=== PATIENT | male | born 1980 | race American Indian/Alaskan Native ===

== ENCOUNTER 2017-03-08 01:10 | Emergency (ER) | payer MEDICAID ==
[2017-03-08 01:41] VITALS: BMI 23.6
[2017-03-08 01:52] VITALS: O2SAT 100
--- NOTE | 2017-03-08 02:49 | ED PDOC ---
Upper Extremity Pain/Injury Time Seen by Provider: 03/08/17 02:00 Chief Complaint (Nursing): Upper Extremity Problem/Injury Chief Complaint (Provider): right arm pain History Per: Patient History/Exam Limitations: no limitations Onset/Duration Of Symptoms: Days (2 weeks) Current Symptoms Are (Timing): Still Present Additional History Per: Patient Additional Complaint(s): 37 y/o male presents with right arm pain x 2 weeks. Patient states area started as what looked like a "bite", 3 days later was admitted to [facility] and started on IV antibiotics and had "cardiac" work up. Patient states he was discharged a week later on Amoxicillin, Toradol, and Tylenol. PAtient notes no improvement of symptoms, and feels the infection is getting worse. Denies fever, nausea/vomiting, numbness/weakness right upper extremity, limitation of movement, IV drug use. Past Medical History Reviewed: Historical Data, Nursing Documentation, Vital Signs Vital Signs: Last Vital Signs Temp 99.0 F 03/08/17 01:42 Pulse 105 H 03/08/17 01:42 Resp 18 03/08/17 01:42 BP 138/78 03/08/17 01:42 Pulse Ox 100 03/08/17 01:42 - Medical History PMH: No Chronic Diseases - Surgical History Surgical History: No Surg Hx - Family History Family History: States: No Known Family Hx - Social History Current smoker - smoking cessation education provided: Yes Alcohol: Occasional Drugs: Denies - Home Medications Home Medications: Ambulatory Orders Medication Instructions Recorded Sulfamethoxazole/Trimethoprim 1 tab PO BID #20 tab 03/08/17 [Bactrim DS 800 mg-160 mg] - Allergies Allergies/Adverse Reactions: Allergies Allergy/AdvReac Type Severity Reaction Status Date / Time No Known Allergies Allergy Verified 03/08/17 01:41 Review of Systems ROS Statement: Except As Marked, All Systems Reviewed And Found Negative Musculoskeletal: Positive for: Arm Pain Physical Exam - Reviewed Nursing Documentation Reviewed: Yes Vital Signs Reviewed: Yes - Physical Exam Appears: Positive for: Well, Non-toxic, No Acute Distress Head Exam: Positive for: ATRAUMATIC, NORMAL INSPECTION, NORMOCEPHALIC Skin: Positive for: Normal Color Eye Exam: Positive for: Normal appearance ENT: Positive for: Normal ENT Inspection Cardiovascular/Chest: Positive for: Regular Rate, Rhythm Respiratory: Positive for: Normal Breath Sounds Pulses-Radial (L): 2+ Pulses-Radial (R): 2+ Extremity: Positive for: Normal ROM, Tenderness (open lesion right antecubital fossa with surrounding tenderness, erythema. Firmness extending up to bicep. FROM), Capillary Refill. Negative for: Deformity Neurologic/Psych: Positive for: Alert, Oriented - Laboratory Results Result Diagrams: 03/08/17 03:06 03/08/17 03:06 - ECG O2 Sat by Pulse Oximetry: 100 - Progress ED Course And Treament: labs, CT right upper extremit with IV contrast, IV toradol EXAM: CT Right Upper Extremity With Intravenous Contrast CLINICAL HISTORY: 37 years old, male; Signs and symptoms; Swelling; Arm, upper and elbow; Right; Additional info: Mid arm pain/redness/swelling with open abscess TECHNIQUE: Axial computed tomography images of the right upper extremity with intravenous contrast. All CT scans at this facility use one or more dose reduction techniques, viz.: automated exposure control; ma/kV adjustment per patient size (including targeted exams where dose is matched to indication; i.e. head); or iterative reconstruction technique. CONTRAST: 90 mL of [id number] administered intravenously. COMPARISON: No relevant prior studies available. FINDINGS: Artifacts: Artifact: Scatter artifact. Bones/joints: Unremarkable. No acute fracture. No dislocation. Soft tissues: There is edema in the subcutaneous fat of the anterior and lower arm. No definite abscess is identified. Scatter artifact somewhat limits evaluation. IMPRESSION: There is edema in the subcutaneous fat of the anterior and lower arm. No definite abscess is identified. Scatter artifact somewhat limits evaluation. IV vanco dose given in ED. Patient educated on findings, discharged with rx Bactrim DS to take in place of amoxicillin. Advised to follow up PMD 2-3 days. Return to ED for worsening/concerning symptoms. Disposition - Clinical Impression Clinical Impression: Cellulitis of right arm - Patient ED Disposition Is Patient to be Admitted: No Counseled Patient/Family Regarding: Studies Performed, Diagnosis, Need For Followup, Rx Given - Disposition Disposition: Routine/Home Disposition Time: 06:00 Condition: IMPROVED Prescriptions: Sulfamethoxazole/Trimethoprim [Bactrim DS 800 mg-160 mg] 1 tab PO BID #20 tab Instructions: Cellulitis (ED) Forms: [employer] (Chinese)
[2017-03-08 03:14] LABS: BASO # 0.1 K/uL (0.0-0.2); BASO % 0.9 % (0.0-2.0); EOS # 0.1 K/uL (0.0-0.7); EOS % 0.5 % (0.0-4.0); HEMATOCRIT 39.5 % (35.0-51.0); LYMPH # 2.9 K/uL (1.0-4.3); LYMPH % 21.1 % (20.0-40.0); MEAN CELL VOLUME 93.8 fl (80.0-94.0); MEAN CORPUSCULAR HEMOGLOBIN 32.4 pg (27.0-31.0); MEAN CORPUSCULAR HGB CONC 34.5 g/dL (33.0-37.0); MEAN PLATELET VOLUME 6.9 fl (7.2-11.7); MONO # 1.2 K/uL (0.0-0.8); MONO % 8.7 % (0.0-10.0); NEUT # 9.3 K/uL (1.8-7.0); NEUT % 68.8 % (50.0-75.0); RED CELL DISTRIBUTION WIDTH 14.2 % (11.5-14.5); WHITE BLOOD COUNT 13.6 K/uL (4.8-10.8)
[2017-03-08 03:19] LABS: ALB/GLOB RATIO 1.2 (1.0-2.1); ALKALINE PHOSPHATASE 62 U/L (38-126); ALT/SGPT 108 U/L (21-72); AST/SGOT 45 U/L (17-59); BILIRUBIN,TOTAL 1.2 mg/dl (0.2-1.3); BLOOD UREA NITROGEN 9 mg/dl (9-20); CALCIUM 9.1 mg/dL (8.4-10.2); CARBON DIOXIDE 20 mmol/L (22-30); CHLORIDE 106 mmol/L (98-107); GFR AFRICAN-AMERICAN > 60; GLUCOSE,RANDOM 100 mg/dL (75-110); SODIUM 137 mmol/l (132-148); TOTAL PROTEIN 8.1 G/DL (6.3-8.2)
[2017-03-08] MEDS ORDERED: Iohexol 300 100 ML IJ ONE (03:46)
[2017-03-08] MEDS ORDERED: Sodium Chloride 0.9% 50 ML IV ONE (03:46)
[2017-03-08 08:15] VITALS: BP 119/62; PULSE 82; RESP 16; TEMP 98
--- NOTE | 2017-03-08 09:52 | CT ---
PROCEDURE: CT right upper extremity with intravenous contrast. HISTORY: mid arm pain/redness/swelling with open abscess COMPARISON: None available. TECHNIQUE: Contiguous axial images of the right upper extremity were obtained after administration of intravenous contrast. Coronal and sagittal reformats were generated. 90 mL Omnipaque 300 was injected intravenously. Radiation dose: 610.[address] exam was performed using one or more of the following dose reduction techniques: Automated exposure control, adjustment of the mA and/or kV according to patient size, and/or use of iterative reconstruction technique. FINDINGS: BONES: There is no acute displaced fracture or bone destruction. No erosive changes in the visualized bones. Bone alignment and mineralization are normal. The elbow joint space is maintained. SOFT TISSUES: There is mild anterior subcutaneous edema in the lower arm. No drainable fluid collection or abscess. IMPRESSION: No evidence of osteomyelitis, drainable fluid collection or abscess. Mild subcutaneous edema in the anterior lower arm. Please note CT is not very sensitive for detection of muscle edema or early intramuscular abscess. If there is a persistent clinical concern, an MRI with intravenous contrast may be performed for further evaluation. A preliminary report was provided by [facility].
== END 2017-03-08 08:13 | disposition home or self-care (01) ==
LOC: H.ER 01:10
DX: L03.113 Cellulitis of right upper limb (principal)
CPT/HCPCS: 73201; 80053; 83605; 85025; 87040; 87070; 96365; 96366; 99284; J1885; Q9967